=== PATIENT | male | born 1965 | race Caucasian/White ===

== ENCOUNTER 2017-03-10 18:39 | Emergency (ER) | payer SELFPAY ==
[~2017-03-10] VITALS: Ht 157.5 cm; Wt 56.0 kg
[2017-03-10 18:46] VITALS: Ht 157.5 cm; Wt 56.0 kg
[2017-03-10] MEDS ORDERED: PRLSR20 PO (18:55)
[2017-03-10] MEDS ORDERED: IBUP-1050 PO (18:56)
[2017-03-10 19:45] VITALS: O2SAT 99
[2017-03-10] MEDS ORDERED: FLUMAZENIL 0.1 MG/1 ML 10 ML VIAL IV PRN (20:45)
[2017-03-10] MEDS ORDERED: HYDROmorphone INJ 2 MG/ML SYR/VIAL IV PRN (20:45)
[2017-03-10] MEDS ORDERED: LABETALOL HCL IV 5 MG/ML 20ML IV PRN (20:45)
[2017-03-10] MEDS ORDERED: ONDANSETRON INJ 2 MG/ML 2 ML VIAL IV PRN (20:45)
[2017-03-10] MEDS ORDERED: EpHEDrine SULFATE INJ 50 MG/ML AMP IV PRN (20:45)
[2017-03-10] MEDS ORDERED: PHENYLEPHRINE 100MCG/ML 5ML SYR IV PRN (20:45)
[2017-03-10] MEDS ORDERED: NALOXONE HCL 0.4 MG/1 ML VIAL/CARP IV PRN (20:45)
[2017-03-10] MEDS ORDERED: FENTANYL CITRATE INJ 50 MCG/1 ML 2 ML VIAL IV PRN (20:45)
[2017-03-10] MEDS ORDERED: ATROPINE SULFATE 0.1 MG/ML 5ML SYR IV PRN (20:45)
[2017-03-10] MEDS ORDERED: MEPERIDINE HCL 25 MG/ML CARP IV PRN (20:45)
[2017-03-10] MEDS ORDERED: FENTANYL CITRATE INJ 50 MCG/1 ML 2 ML VIAL ONE (20:48)
[2017-03-10] MEDS ORDERED: LIDOCAINE HCL 2% 2 ML VIAL (20MG/ML) ONE (20:59)
[2017-03-10] MEDS ORDERED: PROPOFOL IV EMULSION 10 MG/ML 20 ML VIAL IV ONE (20:59)
[2017-03-10] MEDS ORDERED: DEXAMETHASONE SOD INJ 4 MG/ML VIAL ONE (20:59)
[2017-03-10] MEDS ORDERED: ONDANSETRON INJ 2 MG/ML 2 ML VIAL ONE (20:59)
[2017-03-10] MEDS ORDERED: SUCCINYLCHOLINE CHLORIDE 20 MG/ML 10 ML VIAL IV ONE (20:59)
--- NOTE | 2017-03-10 21:30 | GI REPORT ---
Procedure Date: 03/10/2017 8:47 PM Procedure: Upper GI endoscopy Indications: Esophageal dysphagia Medicines: General Anesthesia Complications: No immediate complications. Estimated blood loss: None. Estimated Blood Loss: Estimated blood loss: none. Procedure: Pre-Anesthesia Assessment: - Prior to the procedure, a History and Physical was performed, and patient medications and allergies were reviewed. The patient's tolerance of previous anesthesia was also reviewed. The risks and benefits of the procedure and the sedation options and risks were discussed with the patient. All questions were answered, and informed consent was obtained. Prior Anticoagulants: The patient has taken no previous anticoagulant or antiplatelet agents. ASA Grade Assessment: II - A patient with mild systemic disease. After reviewing the risks and benefits, the patient was deemed in satisfactory condition to undergo the procedure. After obtaining informed consent, the endoscope was passed under direct vision. Throughout the procedure, the patient's blood pressure, pulse, and oxygen saturations were monitored continuously. The scope was introduced through the mouth, and advanced to the third part of duodenum. The upper GI endoscopy was accomplished without difficulty. The patient tolerated the procedure well. Findings: Mucosal changes including ringed esophagus, longitudinal furrows, small-caliber esophagus and circumferential folds were found in the entire esophagus. Biopsies were taken with a cold forceps for histology. Estimated blood loss was minimal. Verification of patient identification for the specimen was done by the physician and dispensary technician using the patient's name and medical record number. Food was found in the lower third of the esophagus and at the gastroesophageal junction. Removal of food was accomplished. Red blood was found in the gastric antrum, in the prepyloric region of the stomach and at the pylorus. Biopsies were taken with a cold forceps for histology and exclude H pylori. Verification of patient identification for the specimen was done by the physician and dispensary technician using the patient's name and medical record number. Retained gastric contents are not identified on this exam. The duodenal bulb and 2nd part of the duodenum were normal. The cardia and gastric fundus were normal on retroflexion. Fresh heme was noted upon initial inspection of the distal stomach. This had a linear appearance of gastritis/watermelon stomach with trace oozing. Impression: - Esophageal mucosal changes consistent with eosinophilic esophagitis. Biopsied. - Food in the lower third of the esophagus and at the gastroesophageal junction. Removal was successful. - Red blood in the gastric antrum, in the prepyloric region of the stomach and in the pylorus. Biopsied. - Normal duodenal bulb and 2nd part of the duodenum. Recommendation: - Discharge patient to home (ambulatory). - Full liquid diet and soft diet as tolerated. - Use Prilosec (omeprazole) 40 mg PO BID for 4 months. - Check hemogram with white blood cell count and platelets today. - Repeat the upper endoscopy in 3 weeks to assess disease activity and possible dilation. - Return to GI clinic in 2 weeks. - Pt needs to establish PCP and will need initial screening colonoscopy. MD Dave Krueger MD 03/10/2017 9:29:15 PM This report has been signed electronically. Note Initiated On: 03/10/2017 8:47 PM I attest to the content of the Intraoperative Record and orders documented therein, exceptions below
--- NOTE | 2017-03-10 21:33 | History & Physical Bridge Note ---
H&P Re-Evaluation Bridge Note: I have examined the patient, reviewed the History & Physical and in the interval since the performance of the History & Physical I have noted the following changes of clinical significance: GI consultation performed and dictated from PACU prior to procedure. consent obtained.
--- NOTE | 2017-03-10 21:39 | Anesthesiology Progress Note ---
Anesthesia Post Op Note Date & Time Mar 10, 2017 at 21:39 Vital Signs Pain Intensity: 0 Vital Signs Past 12 Hours Date Time Temp Pulse Resp B/P (MAP) Pulse Ox O2 Delivery O2 Flow Rate FiO2 03/10/17 19:45 68 20 160/104 99 Room Air 03/10/17 19:03 98 Room Air 03/10/17 18:46 36.8 78 18 163/107 98 Room Air Notes Mental Status: alert / awake / arousable, participated in evaluation Pt Amnestic to Procedure: Yes Nausea / Vomiting: adequately controlled Pain: adequately controlled Airway Patency, RR, SpO2: stable & adequate BP & HR: stable & adequate Hydration State: stable & adequate Anesthetic Complications: no major complications apparent
--- NOTE | 2017-03-10 21:41 | Discharge Instructions ---
Endoscopy Patient Instructions Date / Procedure(s) Performed Mar 10, 2017. EGD Allergy Information Coded Allergies: No Known Allergies (Unverified , 03/10/17) Discharge Date / Findings Mar 10, 2017. food bolus- advanced into stomach changes c/w EoE- bx taken possible linear gastritis vs GAVE- bx Medication Instructions Restart Stopped Medication(s): Reported Home Medications Medications Dose Route/Sig Max Daily Dose Days Date Category Advil (Ibuprofen) 200 Mg Tab 600 Mg PO DAILY 03/10/17 Reported Prilosec (Omeprazole) 20 Mg Capcr 20 Mg PO DAILY 03/10/17 Reported 1) stop ibuprofen 2) increase Prilosec to 40mg twice daily 1/2 hr before breakfast/supper 3) CBC before discharge from ER 4) need GI Office visit for f/u with bx and symptoms 5) eventual repeat EGD 6) needing screening colonoscopy jose Reported Home Medications Medications Dose Route/Sig Max Daily Dose Days Date Category Advil (Ibuprofen) 200 Mg Tab 600 Mg PO DAILY 03/10/17 Reported Prilosec (Omeprazole) 20 Mg Capcr 20 Mg PO DAILY 03/10/17 Reported 1) stop ibuprofen 2) increase Prilosec to 40mg twice daily 1/2 hr before breakfast/supper 3) CBC before discharge from ER 4) need GI Office visit for f/u with bx and symptoms 5) eventual repeat EGD 6) needing screening colonoscopy jose Provider Instructions Activity Restrictions - No exercising or heavy lifting for 24 hours. - Do not drink alcohol the day of the procedure. - Do not drive a car or operate machinery until the day after the procedure. - Do not make any important decisions or sign important papers in 24 hours after the procedure. Following Day: - Return to full activity which may include returning to work/school. Diet Start your diet with liquids and light foods (jello, soup, juice, toast). Then eat your usual diet if not nauseated. Treatment For Common After Affects For mild abdominal pain, bloating, or excessive gas: - Rest - Eat lightly - Lie on right side Follow-Up Information Follow-up with as scheduled Anesthesia Information What You Should Know You have had a procedure that required some medicine to reduce anxiety and discomfort. This treatment is called moderate sedation. After receiving the treatment, you may be sleepy, but you will be able to breathe on your own. The effects of the treatment may last for several hours. Follow these instructions along with Activity/Diet recommendations noted above: * Do NOT do anything where dizziness or clumsiness would be dangerous. * Rest quietly at home today, then you can be up and about tomorrow. * Have a responsible person stay with you the rest of today. * You may have had an I.V. today. If so, you may take the dressing off later today. Recommendations Call your doctor if: * Trouble breathing * Continuous vomiting for more than 24 hours * Temperature above 101 degrees * Severe abdominal pain or bloating * Pain not relieved by pain medicine ordered * There is increased drainage or redness from any incision * A large amount of rectal bleeding greater than 2-3 tablespoons. (If you had a polyp/s removed or have hemorrhoids, a small amount of blood - from the rectum is to be expected.) * You have any unanswered questions or concerns. IN THE EVENT OF A SERIOUS EMERGENCY, GO TO THE NEAREST EMERGENCY ROOM Your discharge instructions were prepared by provider Dave Sullivan. Patient Instructions Signature Page Abdi Pizano Patient (or Guardian) Signature/Date: I have read and understand the instructions given to me by my caregivers. Caregiver/RN/Doctor Signature/Date: The above-named patient and/or guardian has received patient instructions on this date. + Original Patient Signature Page (only) stays with chart. Please make copy for patient.
[2017-03-10 22:06] LABS: HEMATOCRIT 41.3 % (42-52); MEAN CELL VOLUME 90.8 fL (80-100); MEAN CORPUSCULAR HEMOGLOBIN 32.1 pg (25-34); MEAN CORPUSCULAR HGB CONC 35.4 g/dl (32-36); MEAN PLATELET VOLUME 9.3 fL (7.4-10.4); PLATELET COUNT 207 K/uL (130-400); RED BLOOD COUNT 4.55 M/uL (4.7-6.1); WHITE BLOOD COUNT 6.75 K/uL (4.8-10.8)
[2017-03-10 22:08] VITALS: BP 138/94; PULSE 79; TEMP 36.4; O2SAT 99
[2017-03-10 22:10] VITALS: TEMP 36.4
[2017-03-10 22:41] VITALS: PULSE 71; O2SAT 97
[2017-03-10 22:50] VITALS: BP 139/94
--- NOTE | 2017-03-10 23:44 | GASTROINTESTINAL CONSULTATION ---
DATE OF CONSULTATION: 03/10/2017 CHIEF COMPLAINT: Suspected food bolus. REQUESTING PHYSICIAN: ER physician. HISTORY OF PRESENT ILLNESS: Mr. Robledo is a 51-year-old white male, who was eating canned venison this evening when he developed acute inability to swallow and handle the saliva. There was also a sense of chest pressure occurring. The patient actually has a history of this approximately 20 years ago or so, where he had a food bolus that required removal by endoscope. Subsequently, he was followed by Dr. Lantigua, around 1996 or so in [place], where some diagnostic testings were performed. These records are not available. The patient cannot recall if he had an upper endoscopy, was given any specific diagnosis, such as achalasia, eosinophilic esophagitis or strictures. There is a description of webs or rings that seemed to have developed and he seems to recall some kind of a membrane being described by Dr. Lantigua. He was originally prescribed a prescription of Prilosec and had taken it for 6 months. Following this, he, over the years, has used it [id number]. He has not been seen by a primary care provider. He has had no weight loss, hematemesis, coffee-ground emesis or changes in the bowel habits. PAST MEDICAL HISTORY: Unremarkable. He has had no prior surgeries. ALLERGIES: He reports no allergies. MEDICATIONS: His only medication is [id number] Prilosec. FAMILY HISTORY: Unremarkable for gastrointestinal or liver disorders. There is no history of esophageal cancer. SOCIAL HISTORY: The patient denies tobacco or alcohol usage. He is , works in construction. REVIEW OF SYSTEMS: Otherwise noncontributory, based on a 13-point exam. The patient has not had a prior colonoscopy. His review of systems is otherwise noncontributory. The patient's vital signs are stable. PHYSICAL EXAMINATION: GENERAL: The patient is awake, alert and oriented x3. HEENT: The sclerae are anicteric, conjunctivae moist. There is a small linear healing laceration on the far left frontotemporal region. Oral mucosa moist. The patient is spitting in a collection bag, as he is unable to handle his own saliva. HEART: Normal S1, S2. LUNGS: Clear to auscultation. ABDOMEN: Soft, flat, nontender, nondistended with good bowel sounds. There is no rebound or guarding. I do not appreciate hepatosplenomegaly. EXTREMITIES: Without clubbing or cyanosis. RECTAL: Deferred at this time. There were no laboratory studies or imaging obtained in the Emergency Room this evening. VITAL SIGNS: Since admission, blood pressure 163/107, pulse ox 98% on room air, 78 heart rate, 18 respiration, 36 8 orally, repeat blood pressure 160/104. IMPRESSION AND PLAN: The patient with a history of prior food bolus, approximately 20 years ago with some workup of unknown type that was performed in the mid-to-late by Dr. Lantigua in [place]. He has been self medicating with omeprazole since that time and on a rare occasion, may have some sluggish passage of food, but for the most part, he has never had of a subsequent food impaction until this evening. There has been no weight loss. I made the following recommendations: We will perform an upper endoscopy this evening to remove the food bolus and assess the esophagus and upper GI tract. Depending on the degree of irritation and inflammation a serial dilation may be considered this evening as well as possible biopsies. The patient will also require office visit evaluation. Regarding colon screening, the patient has never had a colonoscopy and reports that his grandfather had colon cancer and therefore, this will be needed. Additionally, the patient needs to establish care with a primary care provider to ensure that his general health maintenance is managed, particularly with his blood pressure elevated, albeit during this acute stressful event. All questions answered.
--- NOTE | 2017-03-11 00:38 | EMERGENCY ROOM VISIT NOTE ---
History Report prepared by Yosvany: Debra Buckner Under the Supervision of: Dr. David Drake M.D. First contact with patient: 18:56 Chief Complaint: FOOD BOLUS Stated Complaint: CANT SWALLOW FOOD DOWN,STUCK IN THROAT Nursing Triage Summary: "I can't swallow". last time this happened was 1994, "i have a membrane that gets built up". symptoms are chronic. but worsened 1 hour ago. Patient talking and swallowing at this time. History of Present Illness The patient is a 51 year old male who presents to the Emergency Room with complaints of a constant food bolus beginning 1 hour ago. The patient states that he has a history of food boluses and he last had an episode in 1994 where he was not able to even swallow his own spit. He reports that he had a scope at the time that showed a buildup of membrane in his esophagus. He notes that he has had some episodes since 1994 but has been able to get the food down with some water. The patient complains of difficulty swallowing. Pt denies LOC, headache, fevers, chills, diaphoresis, visual changes, neck pain, chest pain, breathing difficulties, nausea, vomiting, abdominal pain, back pain, melena, hematochezia, urinary symptoms, numbness, weakness, lymphadenopathy, rash, or other complaints. He notes that he bumped his head yesterday and has a cut on his forehead. He states that he takes Prilosec every day as he was prescribed in 1994 but he has not seen his doctor since then. Source of History: patient Onset: 1 hour ago Position: other (esophagus) Quality: other (food bolus) Timing: constant Note: Pt complains of difficulty swallowing. Review of Systems See HPI for pertinent positives and negatives. A total of ten systems were reviewed and were otherwise negative. Past Medical & Surgical Medical Problems: (1) GERD (gastroesophageal reflux disease) Family History No pertinent family history stated. Social History Smoking Status: Never Smoker Marital Status: single Occupation Status: employed Current/Historical Medications Scheduled Ibuprofen (Advil), 600 MG PO DAILY Omeprazole (Prilosec), 20 MG PO DAILY Allergies Coded Allergies: No Known Allergies (Unverified , 03/10/17) Physical Exam Vital Signs Date Time Temp Pulse Resp B/P (MAP) Pulse Ox O2 Delivery O2 Flow Rate FiO2 03/10/17 22:50 139/94 03/10/17 22:46 140/99 03/10/17 22:41 71 17 03/10/17 22:41 70 17 140/97 97 03/10/17 22:35 141/100 03/10/17 22:31 136/99 03/10/17 22:25 148/98 03/10/17 22:21 141/103 03/10/17 22:16 143/101 03/10/17 22:11 138/94 03/10/17 22:10 36.4 76 16 138/94 (109) 99 Room Air 03/10/17 22:08 36.4 79 16 138/94 99 Room Air 03/10/17 22:07 146/96 03/10/17 22:06 134/106 03/10/17 22:04 36.4 76 18 146/96 97 Nasal Cannula 03/10/17 22:01 142/99 03/10/17 22:00 146/98 03/10/17 21:55 74 15 96 03/10/17 21:55 75 15 95 03/10/17 21:51 146/102 03/10/17 21:50 78 10 03/10/17 21:50 78 10 97 03/10/17 21:45 141/98 03/10/17 21:44 87 24 03/10/17 21:44 85 24 97 03/10/17 21:40 119/90 03/10/17 21:36 83 18 03/10/17 21:36 83 18 128/91 95 03/10/17 21:31 89 20 94 03/10/17 21:31 89 18 95 03/10/17 21:30 131/89 03/10/17 21:26 36.0 89 16 135/97 95 Mask 10 03/10/17 19:45 68 20 160/104 99 Room Air 03/10/17 19:03 98 Room Air 03/10/17 18:46 36.8 78 18 163/107 98 Room Air Physical Exam GENERAL: Awake, alert, mildly uncomfortable appearing, actively spitting into a bucket HENT: Normocephalic, atraumatic. Oropharynx unremarkable. EYES: Normal conjunctiva. Sclera non-icteric. NECK: Supple. No nuchal rigidity. FROM. No JVD. RESPIRATORY: Clear to auscultation. CARDIAC: Regular rate, normal rhythm. Extremities warm and well perfused. Pulses equal. ABDOMEN: Soft, non-distended. No tenderness to palpation. No rebound or guarding. No masses. RECTAL: Deferred. MUSCULOSKELETAL: Chest examination reveals no tenderness. The back is symmetrical on inspection without obvious abnormality. There is no CVA tenderness to palpation. No joint edema. LOWER EXTREMITIES: Calves are equal size bilaterally and non-tender. No edema. No discoloration. NEURO: Normal sensorium. No sensory or motor deficits noted. SKIN: No rash or jaundice noted. Medical Decision & Procedures Laboratory Results 03/10/17 21:55 Test 03/10/17 21:55 Red Blood Count 4.55 M/uL (4.7-6.1) Mean Corpuscular Volume 90.8 fL (80-100) Mean Corpuscular Hemoglobin 32.1 pg (25-34) Mean Corpuscular Hemoglobin Concent 35.4 g/dl (32-36) RDW Standard Deviation 43.8 fL (36.4-46.3) RDW Coefficient of Variation 13.3 % (11.5-14.5) Mean Platelet Volume 9.3 fL (7.4-10.4) ED Course 1855: The patient was evaluated in room B8. A complete history and physical exam was performed. 1936: I spoke to Dr. Larisa Caballero. The patient will be scoped and evaluated for further care and management. 2034: Upon reexamination, the patient was doing well. I discussed the test results and treatment plan with him. The patient will be evaluated for further management. Medical Decision Triage Nursing notes reviewed. The patient's presentation and history were concerning for probable food impaction. The patient was evaluated. His history is very concerning for an esophageal food impaction. He has no significant chest pain to be concerned about esophageal rupture. He has no fever for signs of infection. This was rather acute in onset and he has history of the same. I did consult with Dr. Sullivan of gastroenterology. He agreed that this seemed to be very consistent with esophageal food impaction. The patient was taken for endoscopy and further management. Please see his note for disposition and details. Medication Reconcilliation Current Medication List: was personally reviewed by me Blood Pressure Screening Patient's blood pressure: Elevated blood pressure Blood pressure disposition: Elevated BP felt to be situational Consults Time Called: 1929 Consulting Physician: Dr. Sullivan- GI Returned Call: [address] Sullivan. The patient will be scoped and evaluated for further care and management. Impression Primary Impression: Food impaction of esophagus Scribe Attestation The scribe's documentation has been prepared under my direction and personally reviewed by me in its entirety. I confirm that the note above accurately reflects all work, treatment, procedures, and medical decision making performed by me. Departure Information Dispostion Being Evaluated By Hospitalist Patient Instructions My [facility] Problem Qualifiers Primary Impression: Food impaction of esophagus Encounter type: initial encounter Qualified Codes: T18.128A - Food in esophagus causing other injury, initial encounter
== END 2017-03-10 20:15 | disposition still patient (30) ==
LOC: C.EDB 18:40 → C.EDC 20:15
DX: T18.128A Food in esophagus causing other injury, initial encounter (principal); R13.10 Dysphagia, unspecified; X58.XXXA Exposure to other specified factors, initial encounter; K29.50 Unspecified chronic gastritis without bleeding; K20.0 Eosinophilic esophagitis; K21.9 Gastro-esophageal reflux disease without esophagitis; Z80.0 Family history of malignant neoplasm of digestive organs